=== PATIENT | female | born 1985 | race Two or more races ===

== ENCOUNTER 2018-12-03 14:15 | Inpatient (IN) | payer OTHER ==
[~2018-12-03] VITALS: Ht 154.9 cm; Wt 2.7 kg
[2018-12-17] MEDS ORDERED: PRENATAL TABLE1 EAC1 PO (07:01)
== END 2018-12-20 13:08 | disposition home or self-care (01) | DRG 788 ==
LOC: OB/GYN 12-15 14:15 → LDR 12-17 06:10 → OB/GYN 12-17 18:07
PROVIDERS: ADMIT Obstetrics & Gynecology
PROC: 4A0HXFZ Measurement of Products of Conception, Cardiac Rhythm, External Approach (ICD-10-PCS; 2018-12-17)
PROC: 10D00Z1 Extraction of Products of Conception, Low, Open Approach (ICD-10-PCS; principal; 2018-12-17 15:30)
DX: O82 Encounter for cesarean delivery without indication (principal); O32.2XX0 Maternal care for transverse and oblique lie, not applicable or unspecified; Z3A.40 40 weeks gestation of pregnancy; Z37.0 Single live birth

== ENCOUNTER → 2024-08-18 | Emergency (ER) | payer OTHER ==
[~2024-08-18] VITALS: Ht 154.9 cm; Wt 75.7 kg
[~2024-08-18] MED LIST: PRENATAL TABLE1 EAC1 PO; PROGESTERONE200 MG PO
== END | disposition home or self-care (01) ==
LOC: ER 20:43
DX: Z53.21 Procedure and treatment not carried out due to patient leaving prior to being seen by health care provider (principal)

== ENCOUNTER 2024-09-28 13:45 | Outpatient (CLI) | payer OTHER | END 2024-09-28 13:46 | disposition home or self-care (01) | LOC: PRENATAL 13:45 | PROVIDERS: ATTEND Obstetrics & Gynecology Maternal & Fetal Medicine | DX: O36.80X0 Pregnancy with inconclusive fetal viability, not applicable or unspecified (principal); Z36.82 Encounter for antenatal screening for nuchal translucency; O09.529 Supervision of elderly multigravida, unspecified trimester; O34.219 Maternal care for unspecified type scar from previous cesarean delivery; Z14.8 Genetic carrier of other disease; Z3A.12 12 weeks gestation of pregnancy ==

== ENCOUNTER 2024-11-23 11:52 | Outpatient (CLI) | payer OTHER | END 2024-11-23 11:53 | disposition home or self-care (01) | LOC: PRENATAL 11:52 | PROVIDERS: ATTEND Obstetrics & Gynecology Maternal & Fetal Medicine | DX: O44.00 Complete placenta previa NOS or without hemorrhage, unspecified trimester (principal); O09.529 Supervision of elderly multigravida, unspecified trimester; O34.219 Maternal care for unspecified type scar from previous cesarean delivery; Z3A.19 19 weeks gestation of pregnancy ==

== ENCOUNTER → 2025-01-19 09:45 | Outpatient (CLI) | payer OTHER | END | disposition home or self-care (01) | LOC: PRENATAL 09:45 | PROVIDERS: ATTEND Obstetrics & Gynecology Maternal & Fetal Medicine | DX: O26.849 Uterine size-date discrepancy, unspecified trimester (principal); O44.00 Complete placenta previa NOS or without hemorrhage, unspecified trimester; O09.529 Supervision of elderly multigravida, unspecified trimester; O34.219 Maternal care for unspecified type scar from previous cesarean delivery ==

== ENCOUNTER 2025-02-19 12:31 | Outpatient (CLI) | payer OTHER | END 2025-02-19 12:32 | disposition home or self-care (01) | LOC: PRENATAL 12:31 | PROVIDERS: ATTEND Obstetrics & Gynecology Maternal & Fetal Medicine | DX: O26.849 Uterine size-date discrepancy, unspecified trimester (principal); O36.8130 Decreased fetal movements, third trimester, not applicable or unspecified; Z3A.31 31 weeks gestation of pregnancy ==

== ENCOUNTER 2025-03-24 15:14 | Inpatient (IN) | payer OTHER ==
[~2025-03-24] VITALS: Ht 154.9 cm; Wt 2.3 kg
[2025-03-24 15:00] VITALS: BP 11/72; BP 115/72
[2025-03-24] MEDS ORDERED: PRENATA CHEWAB1 EACH PO (17:20)
[2025-03-24] MEDS ORDERED: RINGERS SOLUTION,LACTATED 1,000 ML IV SCH (17:30)
[2025-03-24 17:49] LABS: BASO % 0.2 % (0.1-1.2); EOS # 0.04 (0.04-0.54); EOS % 0.5 % (0.7-7.0); LYMPH # 0.77 (1.18-3.74); LYMPH % 9.5 % (19.3-53.1); MEAN PLATELET VOLUME 11.30 fl (9.4-12.4); MONO # 0.83 (0.24-0.82); MONO % 10.3 % (4.7-12.5); NEUT # 6.36 (1.56-6.13); NEUT % 78.8 % (34.0-71.1); RED CELL DISTRIBUTION WIDTH 12.4 % (11.6-14.4)
[2025-03-24 18:21] LABS: INR < 0.93
[2025-03-24 18:28] LABS: ALT/SGPT 16.0 U/L (12-78); AST/SGOT 16.0 U/L (15-37); BILIRUBIN TOTAL 0.29 mg/dL (0.3-1.2); BUN CREA RATIO 13.0 (7.0-25.0); CREATININE SERUM 0.82 mg/dL (0.55-1.02); GFR 78.02; GLOBULINA 4.2 G/DL (2.4-3.5); GLUCOSE FASTING 81.0 mg/dL (65-100); OSMOLALITY SERUM 278.0 MOSM/KG (275-295)
[2025-03-24 19:00] LABS: CREATININE URINE RANDOM 184.0 MG/DL (30-125)
[2025-03-24 20:19] VITALS: BP 114/74
[2025-03-24 23:59] VITALS: BP 108/69
[2025-03-25 04:19] VITALS: BP 129/69
[2025-03-25 06:31] VITALS: BP 120/76; O2SAT 100
[2025-03-25] MEDS ORDERED: CEFAZOLIN SODIUM 1,000 MG VIAL IV ONE (08:00)
[2025-03-25] MEDS ORDERED: OXYTOCIN 10 UNITS/ML VIAL ONE ×2 (11:37→17:57)
[2025-03-25] MEDS ORDERED: ERYTHROMYCIN BASE OPHT 1GM EACH TUBE OP ONE (11:37)
[2025-03-25] MEDS ORDERED: CEFAZOLIN SODIUM 1,000 MG VIAL ONE (12:08)
[2025-03-25] MEDS ORDERED: RINGERS SOLUTION,LACTATED 1,000 ML IV SCH (12:30)
[2025-03-25] MEDS ORDERED: OXYTOCIN 1,000 ML IV SCH (12:30)
[2025-03-25] MEDS ORDERED: CHLORHEXIDINE GLUCONATE 120 ML BOTTLE TP ONE (12:30)
[2025-03-25] MEDS ORDERED: OxyCODONE HCL 5 MG TABLET (ROXICODONE) PO PRN (12:30)
[2025-03-25] MEDS ORDERED: DOCUSATE SODIUM 100MG CAP PO SCH (17:00)
[2025-03-25 19:03] VITALS: BP 131/75
[2025-03-26 00:59] VITALS: BP 117/76
[2025-03-26 04:30] VITALS: BP 123/79
[2025-03-26 07:20] LABS: BASO % 0.2 % (0.1-1.2); EOS # 0.00 (0.04-0.54); EOS % 0.0 % (0.7-7.0); LYMPH # 0.76 (1.18-3.74); LYMPH % 5.8 % (19.3-53.1); MEAN PLATELET VOLUME 11.50 fl (9.4-12.4); MONO # 0.85 (0.24-0.82); MONO % 6.5 % (4.7-12.5); NEUT # 11.48 (1.56-6.13); NEUT % 87.0 % (34.0-71.1); RED CELL DISTRIBUTION WIDTH 12.0 % (11.6-14.4)
[2025-03-26 08:00] VITALS: BP 111/73
[2025-03-26 17:15] VITALS: BP 116/77
[2025-03-27] VITALS: BP 98/60
[2025-03-27 09:17] VITALS: BP 120/80
[2025-03-27 17:00] VITALS: BP 123/82
[2025-03-28 00:43] VITALS: BP 114/74
[2025-03-28 08:00] VITALS: BP 130/80
[2025-03-28] MEDS ORDERED: OXYCODONE HCL5 MG PO (11:16)
[2025-03-28] MEDS ORDERED: IBUPROFEN800 MG PO (11:16)
[2025-03-28] MEDS ORDERED: COLACE100 MG PO (11:16)
== END 2025-03-28 14:19 | disposition home or self-care (01) | DRG 785 ==
LOC: OBS/DEL 15:14 → O/R 16:28 → LDR 16:28 → O/R 03-25 12:55 → OB/GYN 03-25 14:06
PROVIDERS: ADMIT Student in an Organized Health Care Education/Training Program; ATTEND Student in an Organized Health Care Education/Training Program
PROC: 4A1HXCZ Monitoring of Products of Conception, Cardiac Rate, External Approach (ICD-10-PCS; 2025-03-24)
PROC: 0UB70ZZ Excision of Bilateral Fallopian Tubes, Open Approach (ICD-10-PCS; 2025-03-25)
PROC: 10D00Z1 Extraction of Products of Conception, Low, Open Approach (ICD-10-PCS; principal; 2025-03-25 14:30)
DX: O34.211 Maternal care for low transverse scar from previous cesarean delivery (principal); O76 Abnormality in fetal heart rate and rhythm complicating labor and delivery; O14.94 Unspecified pre-eclampsia, complicating childbirth; Z30.2 Encounter for sterilization; Z37.0 Single live birth; Z3A.37 37 weeks gestation of pregnancy